=== PATIENT | male | born 1985 | race Two or more races ===

== ENCOUNTER 2017-05-20 12:00 | Emergency (ER) | payer SELFPAY ==
[~2017-05-20] VITALS: Ht 180.3 cm; Wt 81.6 kg
[2017-05-20 12:19] VITALS: BP 137/76
--- NOTE | 2017-05-20 12:48 | NUR ---
HEAD INJURY/LACERATION S/P STATUE FELL TO HEAD 1HR AGO, NO KO, NAD NOTED, VSS, RESP EVEN AND UNLABORED. PT PUT ON MONITOR. WAITING FOR MD KENYON.
[2017-05-20] MEDS ORDERED: TDAP [DIPH/PERTUSSIS/TET] 0.5 ML VIAL IM ONE ×2 (13:48→14:00)
== END 2017-05-20 14:10 | disposition home or self-care (01) ==
LOC: ER 12:02
DX: S01.01XA Laceration without foreign body of scalp, initial encounter (principal); S09.8XXA Other specified injuries of head, initial encounter; W18.39XA Other fall on same level, initial encounter; Y93.89 Activity, other specified; Y92.89 Other specified places as the place of occurrence of the external cause; Y99.8 Other external cause status
CPT/HCPCS: 90715; A4606; A6402; Z7610

== ENCOUNTER 2017-06-01 14:21 | Emergency (ER) | payer SELFPAY ==
[~2017-06-01] VITALS: Ht 172.7 cm; Wt 81.6 kg
[2017-06-01 14:31] VITALS: BP 112/71
== END 2017-06-01 15:30 | disposition home or self-care (01) ==
LOC: ER 14:23
DX: Z48.02 Encounter for removal of sutures (principal)
CPT/HCPCS: 99281; A4606; A6402; Z7610; Z7502